=== PATIENT | male | born 1965 | race Asian ===

== ENCOUNTER 2018-06-06 11:40 | Emergency (ER) | payer SELFPAY ==
[~2018-06-06] VITALS: Ht 170.2 cm; Wt 90.7 kg
[2018-06-06 11:40] VITALS: BP_SYST 213
[2018-06-06 11:59] LABS: BASOPHILS # (AUTO) 0.1 K/uL (0.0-0.2); EOSINOPHILS % (AUTO) 0.3 % (0.0-4.0); HEMATOCRIT 53.7 % (36-54); HEMOGLOBIN 18.2 g/dL (14.0-18.0); LYMPHOCYTES # (AUTO) 3.9 K/uL (1.0-5.5); LYMPHOCYTES % (AUTO) 34.3 % (20.5-51.5); MEAN CORPUSCULAR HEMOGLOBIN 31 pg (27-31); MEAN CORPUSCULAR HGB CONC 34 % (32-36); MEAN CORPUSCULAR VOLUME 91 fL (79.0-98.0); MONOCYTES # (AUTO) 0.7 K/uL (0.0-1.0); MONOCYTES % (AUTO) 6.2 % (1.7-9.3); NEUTROPHILS # (AUTO) 6.7 K/uL (1.8-7.7); NEUTROPHILS % (AUTO) 58.2 % (40.0-70.0); PLATELET COUNT (AUTO) 292 K/uL (130-430); RED BLOOD CELL COUNT(AUTO) 5.89 MIL/uL (4.2-6.2); WHITE BLOOD COUNT (AUTO) 11.4 K/uL (4.8-10.8)
[2018-06-06] MEDS ORDERED: MORPHINE 4 MG/ML INJ. SYRINGE IVP ONE (12:00)
[2018-06-06] MEDS ORDERED: ASPIRIN 81 MG TAB.CHEW PO ONE (12:00)
[2018-06-06] MEDS ORDERED: NITROGLYCERIN 0.4 MG TAB.SUBL SL ONE (12:00)
[2018-06-06 12:09] LABS: CALCIUM 9.8 mg/dL (8.4-11.0); CREATININE 1.06 mg/dL (0.55-1.30); POTASSIUM 3.6 mmol/L (3.5-5.1)
[2018-06-06 12:14] LABS: ALBUMIN 4.1 g/dL (3.4-4.8); TOTAL BILIRUBIN 0.9 mg/dL (0.0-1.0)
[2018-06-06 12:29] VITALS: BP_SYST 159
== END 2018-06-06 12:29 | disposition short-term general hospital (02) ==
LOC: SED 11:40
DX: I21.3 ST elevation (STEMI) myocardial infarction of unspecified site (principal)
CPT/HCPCS: 36415; 71045; 80053; 82550; 83880; 84484; 85025; 93005; 96374; 99291; J2270